=== PATIENT | female | born 1945 | race Caucasian/White ===

== ENCOUNTER 2020-08-08 12:47 | Outpatient (REF) | payer MEDICARE, SELFPAY ==
[2020-08-08 13:15] VITALS: BP 148/66; PULSE 55; RESP 16; TEMP 36.6; O2SAT 99; BMI 32.0
== END 2020-08-08 12:48 | disposition home or self-care (01) ==
LOC: HO.MS 12:47
PROVIDERS: PCP Internal Medicine; Visit Provider Ophthalmology
PROC: (CPT 66821; principal; 2020-08-08 15:30)
DX: H26.492 Other secondary cataract, left eye (principal); H40.013 Open angle with borderline findings, low risk, bilateral; Z96.1 Presence of intraocular lens; I10 Essential (primary) hypertension; Z79.899 Other long term (current) drug therapy
CPT/HCPCS: 66821